=== PATIENT | female | born 1985 | race Caucasian/White ===

== ENCOUNTER → 2018-10-25 | Outpatient (REF) ==
--- NOTE | 2018-10-26 02:24 | REP ---
Clinical: Pain and disability. Technique: AP, lateral, coned-down views of the lumbosacral spine. Findings: Alignment and lordosis maintained. Vertebral bodies intact. No acute fracture / compression injury or subluxation. No significant degenerative changes are appreciated. Impression: Relatively age-appropriate examination. If the patient remains symptomatic consider MRI for further investigation. Electronically Signed by Jonathan Canela MD 10/26/2018 02:15 A
== END ==
LOC: M SMT 13:50
PROVIDERS: ATTEND Internal Medicine
DX: Z02.89 Encounter for other administrative examinations (principal)